=== PATIENT | female | born 1990 | race American Indian/Alaskan Native ===

== ENCOUNTER 2017-09-25 11:38 | Emergency (ER) | payer SELFPAY ==
[2017-09-25] MEDS ORDERED: BOOSTRIX IM ONE (13:50)
[2017-09-25] MEDS ORDERED: NORCO 5/325 PO ONE (13:51)
[2017-09-25] MEDS ORDERED: ZITHROMAX PO ONE (13:52)
[2017-09-25] MEDS ORDERED: ROCEPHIN IM ONE (13:52)
[2017-09-25] MEDS ORDERED: XYLOCAINE 1% MPF 5 mL INFILTRATI ONE (13:52)
--- NOTE | 2017-09-25 14:17 | Cat Scan Report ---
CT HEAD WITHOUT CONTRAST: HISTORY: Injury, pain. TECHNIQUE: Sequential 2.5mm CT images. COMPARISON: none. FINDINGS: Cerebral Parenchyma: Within normal limits. Cerebellum: Within normal limits. Brainstem: Within normal limits. Ventricles: Normal. Sella: Normal. Extra-axial spaces: Normal. Basal Cisterns: Normal. Intracranial Hemorrhage: None. Midline Shift: None. Calvarium: Normal. Sinuses: Normal. Mastoid Air Cells: Normal. Visualized Orbits: Normal. IMPRESSION: Cranial CT scan within normal limits.
--- NOTE | 2017-09-25 14:18 | Cat Scan Report ---
CT ORBITS WITHOUT CONTRAST: HISTORY: Injury, pain. TECHNIQUE: Helical CT with sagittal and coronal reformatted images. FINDINGS: There is moderate left periorbital soft tissue swelling The visualized osseous structures are intact without fracture or malalignment. The paranasal sinuses are clear. The nasal septum is midline. The orbital rims are intact. The globes are symmetric with homogeneous density. The retro-orbital fat demonstrates no inflammatory stranding. The extraocular muscles are symmetric. The extraocular muscles and optic nerves demonstrate normal course. IMPRESSION: Left periorbital soft tissue swelling. No facial fracture is identified.
[2017-09-25] MEDS ORDERED: FUL-GLO OP ONE (14:35)
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
[2017-09-25 16:41] LABS: Bilirubin,Urine NEG (Negative); Blood,Urine NEG (Negative); Color,Urine Yellow (Yellow); Mucus,Urine FEW /HPF; Protein,Urine <15 mg/dL mg/dL (Negative); Urobilinogen,Urine < 2.0 mg/dL (<2.0)
[2017-09-25 16:42] VITALS: BP 104/68
[2017-09-25 16:43] LABS: WBC,Urine < 1.0 /HPF (0.0-6.0)
== END 2017-09-25 16:42 | disposition home or self-care (01) ==
LOC: ED 11:38
DX: S00.12XA Contusion of left eyelid and periocular area, initial encounter (principal); Y04.8XXA Assault by other bodily force, initial encounter; Y93.89 Activity, other specified; Y92.89 Other specified places as the place of occurrence of the external cause; Y99.8 Other external cause status
CPT/HCPCS: 70450; 70480; 81001; 87086; 90471; 90715; 96372; 99284; J0696